=== PATIENT | male | born 1940 | race Caucasian/White ===

== ENCOUNTER 2018-01-10 05:32 | Inpatient (IN) ==
[2018-01-10] MEDS ORDERED: Sodium Chlor 0.9% Inj 500 ML IV.SIG SCH ×2 (06:00→07:00)
[2018-01-10] MEDS ORDERED: Metoprolol Tartrate 25 MG Tablet PO ONE ×2 (06:00→06:13)
[2018-01-10] MEDS ORDERED: Chlorhexidine Gluconate 2% 1 Pack (2 Cloths) TOPICAL ONE ×2 (06:00→06:13)
[2018-01-10] MEDS ORDERED: Chlorhexidine 4% Topical 120 APPLIC/120 ML Bottle TOPICAL SCH (06:15)
[2018-01-10] MEDS ORDERED: Lidocaine PF 1% Inj 5 ML Syringe OTHER ONE (07:16)
[2018-01-10] MEDS ORDERED: Glycopyrrolate Inj 1 MG/5 ML Syringe IV.PUSH ONE (07:16)
[2018-01-10] MEDS ORDERED: Phenylephrine/NS 1000 MCG/10ML Syringe IV.PUSH ONE (07:16)
[2018-01-10] MEDS ORDERED: Neostigmine Inj 5 MG/5 ML Syringe IV.PUSH ONE (07:16)
[2018-01-10] MEDS ORDERED: TRANEXAMIC ACID IV.SIG SCH ×2 (07:30→10:30)
[2018-01-10] MEDS ORDERED: Sodium Chlor 0.9% Inj 60 ML, Bupivacaine Liposo PF 1.3% Inj 20 ML P-ARTICULR SCH ×2 (07:30)
[2018-01-10] MEDS ORDERED: SODIUM CHLOR 0.9% IV.SIG SCH ×2 (07:30→10:30)
[2018-01-10] MEDS ORDERED: Vancomycin Inj 1,250 MG in Sodium Chlor 0.9% Inj 250 ML IV.SIG ONE (07:30)
[2018-01-10] MEDS ORDERED: Post-op Orders (for Pharmacy) OTHER STA (10:02)
[2018-01-10] MEDS ORDERED: Bisacodyl 10 MG Supp RECTAL PRN (10:02)
[2018-01-10] MEDS ORDERED: Aluminum/Magnesium/Simethacone Susp 30 ML UDC PO PRN (10:02)
[2018-01-10] MEDS ORDERED: Naloxone Inj 0.4 MG/ML Vial IV.PUSH PRN (10:08)
--- NOTE | 2018-01-10 10:15 | P.DCO ---
- Physical Therapy Hip: Total hip, Protocol: Left, Posterior hip precautions Left Lower Extremity Weight Bearing: Weight bearing as tolerated Left Lower Extremity Range of Motion: Active ROM - Nursing Nursing: Other (check VS and inspect surgical site) Dressing changes: Other (Leave prineo dressing intact and open to air if dry. OK to shower wednesday 01/17) - Certification Need for Home Health services: I have seen patient Chris Sharpe on 01/10/18. My clinical findings support the need for the requested home health care services because: Need for Home Health Services: Limited ability to care for self Homebound Certification: I certify that my clinical findings support that this patient is homebound because: Homebound Certification: Unsafe to leave home unassisted
[2018-01-10] MEDS ORDERED: fentaNYL Citrate Inj 100 MCG/2 ML Ampul ONE (10:45)
[2018-01-10] MEDS ORDERED: *morphine SULFATE 4 MG/ML PERIprocedure ONLY ONE ×2 (10:48→10:56)
[2018-01-10] MEDS ORDERED: Morphine Inj 30 MG/30 ML PCA.VIAL PCA ONE (10:57)
[2018-01-10] MEDS ORDERED: Vancomycin Inj 1 GM/200 ML PIGGYBACK IV.SIG SCH (11:00)
--- NOTE | 2018-01-10 11:10 | MP ---
cc: Kush Mahajan MD DATE OF OPERATION: 01/10/2018 PREOPERATIVE DIAGNOSIS: Osteoarthritis, left hip. POSTOPERATIVE DIAGNOSIS: Osteoarthritis, left hip. OPERATIVE PROCEDURE: Total hip replacement arthroplasty, left hip, using [employer] components as follows: Cup 60 mm porous coated with 2 dome screws, liner high wall 36 mm polyethylene, stem standard 17.5 mm Taperloc with standard offset, and head ceramic 36 mm standard neck length. SURGEON: Kush Mahajan MD. ANESTHESIA: General. TECHNIQUE: After induction of general anesthesia, the patient was placed in left lateral position supported by hip positioners. A strict lateral position was ascertained. Upper extremities properly positioned. Axillary roll placed. Well leg properly padded. Left hip and left lower extremity thoroughly prepped with alcohol and ChloraPrep and draped in routine fashion including double Ioban drape. A standard lateral incision was made for a posterior approach centered over the greater trochanter, deepened through subcutaneous tissue and fascia. Fibers of the gluteus maximum were . Self-retaining retractor was introduced. The bursa was dissected; and the short external rotators were identified, tagged, and cut including the capsule in a single layer in an inverted L-shaped fashion with the vertical limb of the L along the intertrochanteric line. The gluteus medius elevated from the crest bleed. Gluteus minimus was elevated from the acetabulum and a Steinmann pin placed here in the bone superior to the acetabulum and just bent to 90 degrees to measure length and offset and reference until the end of the procedure for leg length and offset. The hip was dislocated. Femoral neck osteotomy was carried out at the approximate location as determined by preoperative templating. Debridement of the joint was carried out with good exposure of the acetabulum, followed by reaming starting with a 51 mm reamer and ending with a 60 mm reamer, exposing bleeding subchondral bone and impacting a 60 mm cup in 45 degrees of abduction and 20 degrees anteversion. Two dome screws were placed. A high wall insert was placed, selecting the high wall mainly because of his height and to get additional protection from posterior dislocation. Femoral canal was now prepared following routine technique. We used the standard Taperloc stem because of the better fit and a 17.5 mm fits very nicely and a trial reduction carried out with this broach with a standard offset -3 head and it shows that we are short by about 2-3 mm and we lose about 3 mm of offset and has excellent stability. Hip was dislocated. Impaction bone grafting was carried out using patient's bone from the femoral neck and head and the broach impacted in place, followed by a 17.5 mm standard Taperloc stem getting good fit and fill. A standard head was placed over it (ceramic 36 mm). Final reduction was carried out, getting excellent stability and good leg lengths. According to my measurements, we have the same leg length is preop and we have lost about 3 mm of offset. The wound was irrigated with saline solution, followed by reapproximation of the capsule and short external rotators with the superior corner attached to the tendon of the gluteus medius close to the greater trochanter and the inferior portion attached to the bone through the drill hole in the greater trochanter, getting good repair. Fascia was closed with a couple of interrupted #2 Vicryl sutures and the rest with a #2 Quill, subcutaneous tissue with 2-0 Vicryl, skin with 3-0 subcuticular Stratafix and Prineo dressing. The patient transferred to recovery room in satisfactory condition with an abduction pillow on. The patient tolerated the procedure well. COMPLICATIONS: None. POSTOPERATIVE CONDITION: Satisfactory. PROGNOSIS: Good. ESTIMATED BLOOD LOSS: 350 mL. MD TERRI Abad/hue , 10:21 AM , 10:33 AM
[2018-01-10] MEDS: Sod Chloride 0.9% Inj 1,000 ML IV.CONT SCH ×2 (11:13→19:38)
--- NOTE | 2018-01-10 11:55 | XR ---
EXAM DATE: 01/10/2018 12:00 AM EDT AGE/SEX: 77 years / Male INDICATIONS: Post-op left hip. CLINICAL DATA: This is the patient's initial encounter. Patient reports that signs and symptoms have been present for 1 day and indicates a pain score of 0/10. MEDICAL/SURGICAL HISTORY: None. None. COMPARISON: No prior exams available for comparison. FINDINGS: A right total hip arthroplasty is noted. The patient has undergone left total hip arthroplasty. Subcu taneous air is seen. No fracture or dislocation. Satisfactory appearance of the femoral and acetabula r components. CONCLUSION: Postop left hip arthroplasty. Electronically signed by: Sunny Quintanilla MD 01/10/2018 11:54 AM EDT
[2018-01-10] MEDS ORDERED: Tiotropium Bromide 18 MCG/ACT Inhaler INH PRN ×2 (12:00)
[2018-01-10] MEDS ORDERED: Morphine Inj 30 MG/30 ML PCA.VIAL PCA PRN (12:00)
[2018-01-10] MEDS: Ketorolac Inj 30 MG/ML (IVP) Vial IV.PUSH SCH ×3 (12:07→23:47)
[2018-01-10] MEDS ORDERED: Clindamycin 900 mg/NS Premix 900 MG/50 ML PIGGYBACK IV.SIG SCH (15:00)
[2018-01-10] MEDS: Vancomycin Inj 1,000 MG in Sodium Chlor 0.9% Inj 250 ML IV.SIG SCH (17:35)
[2018-01-10] MEDS: Senna/Docusate Sodium 8.6/50 MG Tablet PO SCH (20:32)
[2018-01-11 04:54] LABS: Hematocrit 38.2 % (39.0-51.0); Hemoglobin 12.7 gm/dL (13.0-17.0)
[2018-01-11 05:18] LABS: Carbon Dioxide 30.1 meq/L (21.0-32.0); Potassium 4.3 meq/L (3.5-5.1)
[2018-01-11] MEDS: Ketorolac Inj 30 MG/ML (IVP) Vial IV.PUSH SCH ×4 (05:41→23:51)
[2018-01-11] MEDS: Vancomycin Inj 1,000 MG in Sodium Chlor 0.9% Inj 250 ML IV.SIG SCH (05:42)
[2018-01-11] MEDS: Sod Chloride 0.9% Inj 1,000 ML IV.CONT SCH ×3 (07:18→17:34)
--- NOTE | 2018-01-11 07:32 | P.PNOP ---
Subjective Interval history: nO PAIN. Trouble urinating, st cath 1 Physical Exam Vital signs: Vital Signs 01/10/18 10:33 01/10/18 10:45 01/10/18 11:00 Temperature 98.1 F Pulse Rate 122 H 93 H 83 Respiratory Rate 16 12 16 Blood Pressure 128/68 103/57 L 120/76 Pulse Oximetry 95 92 L 95 01/10/18 11:15 01/10/18 11:30 01/10/18 12:00 Temperature Pulse Rate 83 83 86 Respiratory Rate 14 14 13 Blood Pressure 140/74 140/80 137/97 H Pulse Oximetry 96 94 L 96 01/10/18 13:00 01/10/18 14:00 01/10/18 15:53 Temperature 97.4 F L 98 F Pulse Rate 87 92 H 82 Respiratory Rate 14 19 18 Blood Pressure 144/94 H 150/75 H 158/95 H Pulse Oximetry 98 95 91 L 01/10/18 20:02 01/10/18 23:22 01/11/18 04:00 Temperature 97.2 F L 97.6 F 97.5 F L Pulse Rate 97 H 90 85 Respiratory Rate 18 18 18 Blood Pressure 147/92 H 124/60 123/58 L Pulse Oximetry 96 97 96 Intake & Output 01/10/18 01/11/18 01/11/18 18:59 06:59 18:59 Intake Total 3792.04 / 3792.04 2042 / 2042 250 / 250 Output Total 250 / 250 1000 / 1000 Balance 3542.04 / 3542.04 1042 / 1042 250 / 250 Weight 87.7 kg 87.7 kg Intake: IV 1932.04 / 1932.04 1562 / 1562 250 / 250 NS Inj 1,000 ML @ 125 mls/hr IV 346 / 346 1000 / 1000 .CONT .Q8H [facility] Rx#:[id number] Ofirmev Inj 1,000 mg In 100 ml 100 / 100 @ 400 mls/hr IV.SIG Q12H [facility] Rx #:[id number] Cleocin Inj 900 MG In NS Inj 106 / 106 212 / 212 100 ML @ 106 mls/hr IV.SIG Q8H [facility] Rx#:[id number] LR 1000 mL Inj 1,000 ML @ 30 1000 / 1000 mls/hr IV.SIG .Q24H [facility] Rx#: [id number] Cyklokapron Inj 877 MG In NS 217.54 / 217.54 Inj 100 ML @ 200 mls/hr IV.SIG ONCE [facility] Rx#:[id number] Vancomycin Inj 1,000 MG In NS 250 / 250 250 / 250 Inj 250 ML @ 250 mls/hr IV.SIG Q12H [facility] Rx#:[id number] Vancomycin Inj 1,250 MG In NS 262.5 / 262.5 Inj 250 ML @ 250 mls/hr IV.SIG ONCE [facility] Rx#:[id number] Oral 460 / 460 480 / 480 Anesthesia Amount 1400 / 1400 Output: Urine 0 / 0 Estimated Blood Loss 250 / 250 Urine Amount (Catheter) 1000 / 1000 Straight 1000 / 1000 Other: # Voids 0 Date of Last Bowel Movement 01/09/18 01/09/18 # Bowel Movements 0 0 Narrative: Patient is awake alert and oriented.Patient is A, A, and o Sitting OOB. moves toes well Dressings dry and intact - Urinary Catheter Management Straight Cath placed during this visit: yes, but has since been removed by the nurse Reason for continuing: Not indwelling catheter Insertion date: 01/10/18 Insertion time: 20:46 Removal date: 01/10/18 Removal time: 21:44 Results - Labs CBC & Chem 7: 01/11/18 04:31 01/11/18 04:31 Laboratory Results - last 24 hr 01/11/18 01/11/18 04:31 04:31 Hgb 12.7 L Hct 38.2 L Sodium 137 Potassium 4.3 Chloride 101 Carbon Dioxide 30.1 Anion Gap 6 BUN 15 Creatinine 1.04 Estimated GFR 69 L Random Glucose 115 H Calcium 8.0 L - Imaging Impressions Hip X-Ray 01/10/18 00:00 CONCLUSION: Postop left hip arthroplasty. Assessment and Plan - Ortho Post Op Day # 1 - Assessment and Plan flomax for retention etc. Home with [facility] tomorrow
[2018-01-11] MEDS: hydroCHLOROthiazide 25 MG Tablet PO SCH (08:17)
[2018-01-11] MEDS: Senna/Docusate Sodium 8.6/50 MG Tablet PO SCH ×2 (08:17→21:21)
[2018-01-11] MEDS: Rivaroxaban 10 MG Tablet PO SCH (08:17)
[2018-01-11 22:24] VITALS: O2SAT 93
[2018-01-12] MEDS: Sod Chloride 0.9% Inj 1,000 ML IV.CONT SCH ×2 (04:27→10:41)
[2018-01-12] MEDS: Ketorolac Inj 30 MG/ML (IVP) Vial IV.PUSH SCH (05:54)
[2018-01-12] MEDS: hydroCHLOROthiazide 25 MG Tablet PO SCH (08:30)
[2018-01-12] MEDS: Senna/Docusate Sodium 8.6/50 MG Tablet PO SCH (08:30)
[2018-01-12] MEDS: Rivaroxaban 10 MG Tablet PO SCH (08:31)
[2018-01-12 12:58] VITALS: BP 130/65; PULSE 82; RESP 18; TEMP 97.2
--- NOTE | 2018-01-12 13:40 | P.PNOP ---
Subjective Interval history: No complaints. Ready to go home. Voiding. Physical Exam Vital signs: Vital Signs 01/11/18 17:42 01/11/18 20:00 01/12/18 00:00 Temperature 97.7 F 97.6 F 97.3 F L Pulse Rate 78 77 86 Respiratory Rate 16 15 17 Blood Pressure 142/76 H 149/78 H 160/85 H Pulse Oximetry 91 L 93 L 93 L 01/12/18 04:00 01/12/18 12:58 Temperature 97.3 F L 97.2 F L Pulse Rate 77 82 Respiratory Rate 16 18 Blood Pressure 153/69 H 130/65 Pulse Oximetry 93 L 93 L Intake & Output 01/11/18 01/12/18 01/12/18 18:59 06:59 18:59 Intake Total 1176 / 1176 700 / 700 100 / 100 Balance 1176 / 1176 700 / 700 100 / 100 Weight 90.9 kg Intake: IV 456 / 456 100 / 100 100 / 100 Ofirmev Inj 1,000 mg In 100 ml 100 / 100 100 / 100 100 / 100 @ 400 mls/hr IV.SIG Q12H [facility] Rx #:[id number] Cleocin Inj 900 MG In NS Inj 106 / 106 100 ML @ 106 mls/hr IV.SIG Q8H [facility] Rx#:[id number] Vancomycin Inj 1,000 MG In NS 250 / 250 Inj 250 ML @ 250 mls/hr IV.SIG Q12H [facility] Rx#:[id number] Oral 720 / 720 600 / 600 Other: # Voids 3 3 Date of Last Bowel Movement 01/09/18 01/10/18 01/12/18 # Bowel Movements 0 Narrative: Sitting out of bed in chair. He is comfortable. No leg swelling. Dressings dry. He moves his toes well - Urinary Catheter Management Straight Cath placed during this visit: yes, but has since been removed by the nurse Reason for continuing: Not indwelling catheter Insertion date: 01/10/18 Insertion time: 20:46 Removal date: 01/10/18 Removal time: 21:44 Results - Labs CBC & Chem 7: 01/11/18 04:31 01/11/18 04:31 Assessment and Plan - Ortho Post Op Day # 2 - Assessment and Plan flomax for retention etc. Home with [facility] tomorrow - Attending Attestation Attending Attestation: Patient being discharged home with home health care and home physical therapy. Discharge medications are as follows Flomax 0.4 mg daily a.m. for 5 days, and on an as-needed basis Hydrocodone 2 tablets every 6 hours as needed #56 Xarelto 10 mg daily #12 To see me January 22, 2018. To call office for appointment.
--- NOTE | 2018-01-13 11:09 | MD ---
cc: Kush Mahajan MD DATE OF DISCHARGE: 01/12/2018 ADMITTING DIAGNOSIS: Osteoarthritis, left hip. DISCHARGE DIAGNOSIS: Osteoarthritis, left hip. HISTORY OF PRESENT ILLNESS: History consists of previous hip replacement on the right side and chronic problems with both hips with now the left have given him problems interfering with activities of daily living. He had previous history of bladder cancer. He is [employer], does not accept blood transfusions. HOSPITAL COURSE: Preoperative workup was satisfactory and after informed consent, he was brought to the hospital, and on the morning of admission, underwent total hip replacement arthroplasty without any problems. Postoperative course uneventful. Last time he walked with therapy, he walked 400 feet. He knows dislocation precautions. He is going home with abduction pillow. OT and PT to work with him. The patient discharged with prescriptions for Xarelto 10 mg daily for 10 days, hydrocodone 5, two tablets every 6 hours p.r.n., #56; Flomax 0.4 mg daily a.m. p.r.n. for 5 days. FOLLOWUP: The patient was given an appointment to see me on 01/22/2018. DISCHARGE CONDITION: Stable. PROGNOSIS: Good. MD TERRI Abad/rhiannon , 01:42 PM , 01:49 PM
== END 2018-01-12 14:34 | disposition home health service (06) ==
LOC: HSDI 05:32 → N06 14:28
PROVIDERS: ADMIT Orthopaedic Surgery; ATTEND Orthopaedic Surgery